=== PATIENT | female | born 1980 | race Caucasian/White ===

== ENCOUNTER 2017-05-16 15:50 | Emergency (ER) | payer OTHER, SELFPAY ==
--- NOTE | 2017-05-16 17:34 | ER ---
Nurse's Notes [facility] Name: Adria Medel Age: 36 yrs Sex: Female : 1980 Arrival Date: 05/16/2017 Time: 15:55 Bed DIS1 Private MD: Diagnosis: Acute sinusitis Presentation: 05/16 16:12 Presenting complaint: Patient states: " I have been feeling like I've had a fever for ph about 2 days. I feel really congested and when I blow my nose it's yellow and green. My throat started hurting today and I'm loosing my voice.". Transition of care: patient was not received from another setting of care. Onset of symptoms was May 16, 2017. Care prior to arrival: Medication(s) given: Tylenol, 650 mg, \\T\\ 1230. 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 - Social history:: Smoking status: Patient/guardian denies using tobacco. Screenin:01 Abuse screen: Denies threats or abuse. Denies injuries from another. Nutritional ph screening: No deficits noted. Tuberculosis screening: No symptoms or risk factors identified. Fall Risk None identified. Assessment: 16:57 General: Appears in no apparent distress. comfortable, Behavior is calm, cooperative, ph appropriate for age, Reports fever for. Pain: Complains of pain in throat. Neuro: Level of Consciousness is awake, alert, obeys commands, Oriented to person, place, time, situation. Cardiovascular: Denies chest pain, shortness of breath, Capillary refill < 3 seconds in bilateral fingers Patient's skin is warm and dry. Respiratory: Airway is patent Respiratory effort is even, unlabored, Respiratory pattern is regular, symmetrical, Breath sounds are clear bilaterally. Denies shortness of breath. GI: No signs and/or symptoms were reported involving the gastrointestinal system. EENT: Throat is reddened bilaterally Reports nasal congestion nasal discharge that is green that is yellow pain when swallowing. Derm: Skin is intact, is healthy with good turgor, Skin is pink, warm \\T\\ dry. Musculoskeletal: Circulation, motion, and sensation intact. Range of motion: intact in all extremities. 17:47 Reassessment: Patient appears in no apparent distress at this time. Patient and/or ph family updated on plan of care and expected duration. Pain level reassessed. Patient is alert, oriented x 3, equal unlabored respirations, skin warm/dry/pink. Discharged home. Vital Signs: 16:14 BP 123 / 84; Pulse 65; Resp 18; Temp 98.1(O); Pulse Ox 98% on R/A; Weight 78.47 kg; ph Height 5 ft. 6 in. (167.64 cm); 17:47 BP 118 / 83; Pulse 64; Resp 18; Temp 97.2; Pulse Ox 98% on R/A; ph 16:14 Body Mass Index 27.92 (78.47 kg, 167.64 cm) ph ED Course: 15:55 Patient arrived in ED. as 16:14 Triage completed. ph 16:15 Arm band placed on. ph 16:32 Jennifer Pierce FNP-C is [facility]. kb 16:33 Hansel Reyes MD is Attending Physician. kb 16:57 Lesly Casey, RN is Primary Nurse. ph 17:01 Patient has correct armband on for positive identification. Call light in reach. ph 17:01 No provider procedures requiring assistance completed. Patient did not have IV access ph during this emergency room visit. Administered Medications: No medications were administered Outcome: 17:34 Discharge ordered by MD. kb 17:47 Discharged to home ambulatory, with family. ph 17:47 Condition: good 17:47 Discharge instructions given to patient, Instructed on discharge instructions, follow up and referral plans. Demonstrated understanding of instructions, follow-up care. 17:48 Patient left the ED. ph Signatures: Jennifer Pierce FNP-C FNP-Gosia Do as Lesly Casey, RN RN ph
--- NOTE | 2017-05-16 17:34 | EDPHYS ---
Physician Documentation [facility] Name: Adria Medel Age: 36 yrs Sex: Female : 1980 Arrival Date: 05/16/2017 Time: 15:55 Bed DIS1 Private MD: ED Physician Hansel Reyes HPI: 05/16 16:48 This 36 yrs old Female presents to ER via Ambulatory with complaints of kb Fever, Congestion, Sore Throat. 16:48 The patient presents with sore throat. The patient describes throat pain as constant. kb Onset: The symptoms/episode began/occurred yesterday. Severity of symptoms: At their worst the symptoms were mild, moderate, in the emergency department the symptoms are unchanged. Modifying factors: The symptoms are alleviated by nothing, the symptoms are aggravated by swallowing, Patient's oral intake status: good. Associated signs and symptoms: Pertinent positives: earache, rhinorrhea, Sore throat congestion, hoarseness. The patient has not experienced similar symptoms in the past. The patient has not recently seen a physician. 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 - Social history:: Smoking status: Patient/guardian denies using tobacco. ROS: 16:46 Constitutional: Negative for fever, chills, and weight loss, Neck: Negative for injury, kb pain, and swelling, Cardiovascular: Negative for chest pain, palpitations, and edema, Respiratory: Negative for shortness of breath, cough, wheezing, and pleuritic chest pain, Abdomen/GI: Negative for abdominal pain, nausea, vomiting, diarrhea, and constipation, Back: Negative for injury and pain, : Negative for injury, bleeding, discharge, and swelling, MS/Extremity: Negative for injury and deformity, Skin: Negative for injury, rash, and discoloration, Neuro: Negative for headache, weakness, numbness, tingling, and seizure. 16:46 ENT: Positive for ear pain, hoarseness, rhinorrhea, sinus congestion, sore throat. Exam: 16:46 Constitutional: This is a well developed, well nourished patient who is awake, alert, kb and in no acute distress. Head/Face: Normocephalic, atraumatic. Neck: Trachea midline, no thyromegaly or masses palpated, and no cervical lymphadenopathy. Supple, full range of motion without nuchal rigidity, or vertebral point tenderness. No Meningismus. Chest/axilla: Normal chest wall appearance and motion. Nontender with no deformity. No lesions are appreciated. Cardiovascular: Regular rate and rhythm with a normal S1 and S2. No gallops, murmurs, or rubs. Normal PMI, no JVD. No pulse deficits. Respiratory: Lungs have equal breath sounds bilaterally, clear to auscultation and percussion. No rales, rhonchi or wheezes noted. No increased work of breathing, no retractions or nasal flaring. Abdomen/GI: Soft, non-tender, with normal bowel sounds. No distension or tympany. No guarding or rebound. No evidence of tenderness throughout. Skin: Warm, dry with normal turgor. Normal color with no rashes, no lesions, and no evidence of cellulitis. MS/ Extremity: Pulses equal, no cyanosis. Neurovascular intact. Full, normal range of motion. Neuro: Awake and alert, GCS 15, oriented to person, place, time, and situation. Cranial nerves II-XII grossly intact. Motor strength 5/5 in all extremities. Sensory grossly intact. Cerebellar exam normal. Normal gait. 16:46 ENT: External ear(s): are unremarkable, Ear canal(s): are normal, TM's: are normal, Nose: is normal, Mouth: is normal, Posterior pharynx: Airway: normal, no evidence of obstruction, Tonsils: with erythema, Uvula: normal, midline, swelling, is not appreciated, erythema, that is mild, exudate, is not appreciated. Vital Signs: 16:14 BP 123 / 84; Pulse 65; Resp 18; Temp 98.1(O); Pulse Ox 98% on R/A; Weight 78.47 kg; ph Height 5 ft. 6 in. (167.64 cm); 17:47 BP 118 / 83; Pulse 64; Resp 18; Temp 97.2; Pulse Ox 98% on R/A; ph 16:14 Body Mass Index 27.92 (78.47 kg, 167.64 cm) ph MDM: 16:33 Patient medically screened. kb 16:46 Data reviewed: vital signs, nurses notes. Data interpreted: Pulse oximetry: on room air kb is 98 %. Interpretation: normal. 17:33 Counseling: I had a detailed discussion with the patient and/or guardian regarding: the kb historical points, exam findings, and any diagnostic results supporting the discharge/admit diagnosis, lab results, the need for outpatient follow up, a family practitioner, to return to the emergency department if symptoms worsen or persist or if there are any questions or concerns that arise at home. 05/16 16:41 Order name: Strep kb 05/16 17:25 Order name: Group A Streptococcus Rapid Sc; Complete Time: 17:28 EDMS Administered Medications: No medications were administered Disposition: 05/16/17 17:34 Discharged to Home. Impression: Acute sinusitis. - Condition is Stable. - Discharge Instructions: Sinusitis, [id number]. - Medication Reconciliation Form, Thank You Letter, Antibiotic Education, Prescription Opioid Use form. - Follow up: Emergency Department; When: As needed; Reason: Worsening of condition. Follow up: Private Physician; When: 2 - 3 days; Reason: Recheck today's complaints, Continuance of care, Re-evaluation by your physician. - Notes: Addendum: 05/20/2017 07:24 Co-signature as Attending Physician, Hansel Reyes MD. g s Signatures: Dispatcher [employer] EDJennifer Araujo, SUZAN GUSTAFSON-Lesly Campos RN RN Hansel Loja MD MD
== END 2017-05-16 17:48 | disposition home or self-care (01) ==
LOC: ER 15:50
DX: J01.90 Acute sinusitis, unspecified (principal); Z88.1 Allergy status to other antibiotic agents; Z88.2 Allergy status to sulfonamides
CPT/HCPCS: 87070; 87081; 99281

== ENCOUNTER 2017-12-11 14:39 | Emergency (ER) | payer BC, OTHER ==
[2017-12-11 16:16] LABS: Urine Specific Gravity >1.030 (1.005-1.030)
[2017-12-11 16:16] LABS: Urine Blood NEGATIVE (NEG); Urine Glucose NEGATIVE (NEG); Urine Protein NEGATIVE (NEG); Urine Specific Gravity >1.030 (1.005-1.030); Urine pH 5.5 (5.0-7.0)
[2017-12-11 16:18] LABS: Absolute Lymphocytes (CBC) 1.8 K/uL (0.7-4.9); Absolute Monocytes 0.4 K/uL (0.1-1.3); Absolute Neutrophil 3.5 K/uL (1.8-8.0); Basophils % 0.7 % (0-1.3); Eosinophils % 1.6 % (0-4.4); Hematocrit 37.9 % (36.0-45.0); Lymphocytes % 30.5 % (15.3-44.8); MCV 91.5 fL (80-100); MPV 10.2 fL (7.6-11.3); RBC Red Blood Cell Count 4.14 M/uL (3.86-4.86)
[2017-12-11 16:45] LABS: BUN Blood Urea Nitrogen 7 mg/dL (7-18); Bicarbonate 24 mmol/L (21-32); Glucose Level 84 mg/dL (74-106); Potassium 3.8 mmol/L (3.5-5.1); Sodium Level 142 mmol/L (136-145)
[2017-12-11 16:47] LABS: HCG, Quantitative < 1 mIU/mL (1-3)
--- NOTE | 2017-12-11 17:04 | ER ---
Nurse's Notes [facility] Name: Adria Medel Age: 37 yrs Sex: Female : 1980 Arrival Date: 12/11/2017 Time: 14:41 Bed 28 Private MD: Diagnosis: Lower abdominal pain, unspecified-Resolved Presentation: 12/11 14:45 Presenting complaint: Patient states: "I was cramping really bad, I could barely stand aj1 up, it was worse than menstrual cramps so I took a test and it was positive" Denies vaginal bleeding. States that she is concerned that she might need a RhoGam shot. Transition of care: patient was not received from another setting of care. Onset of symptoms was December 11, 2017. Risk Assessment: Do you want to hurt yourself or someone else? Patient reports no desire to harm self or others. Initial Sepsis Screen: Does the patient meet any 2 criteria? No. Patient's initial sepsis screen is negative. Does the patient have a suspected source of infection? No. Patient's initial sepsis screen is negative. Care prior to arrival: None. 14:45 Method Of Arrival: Ambulatory aj1 14:45 Acuity: ALFREDO 4 aj1 Triage Assessment: 14:47 General: Appears in no apparent distress. comfortable, Behavior is calm, cooperative, aj1 appropriate for age. Pain: Denies pain. Neuro: Level of Consciousness is awake, alert, obeys commands. Cardiovascular: Patient's skin is warm and dry. Respiratory: Airway is patent Respiratory effort is even, unlabored, Respiratory pattern is regular, symmetrical. GI: Reports cramping. 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 - Social history:: Smoking status: Patient/guardian denies using tobacco. - Ebola Screening: : Patient denies travel to an Ebola-affected area in the 21 days before illness onset. Screenin:57 Abuse screen: Denies threats or abuse. Denies injuries from another. Nutritional rv screening: No deficits noted. Tuberculosis screening: No symptoms or risk factors identified. Fall Risk None identified. Assessment: 14:56 General: Appears in no apparent distress. comfortable, Behavior is cooperative, rv anxious. Pain: Complains of pain in abdomen Pain currently is 0 out of 10 on a pain scale. Neuro: Level of Consciousness is awake, alert, obeys commands, Oriented to person, place, time, situation. Cardiovascular: Capillary refill < 3 seconds. Respiratory: Airway is patent. GI: Bowel sounds present X 4 quads. Abd is soft and non tender X 4 quads. : No signs and/or symptoms were reported regarding the genitourinary system. EENT: No signs and/or symptoms were reported regarding the EENT system. Derm: Skin is intact. 16:44 Reassessment: Patient appears in no apparent distress at this time. Patient and/or rv family updated on plan of care and expected duration. Pain level reassessed. Patient is alert, oriented x 3, equal unlabored respirations, skin warm/dry/pink. Vital Signs: 14:47 BP 105 / 77; Pulse 73; Resp 16; Temp 97.0; Pulse Ox 98% on R/A; Weight 77.11 kg (R); aj1 Height 5 ft. 6 in. (167.64 cm) (R); Pain 0/10; 15:09 BP 103 / 72; Pulse 64; Pulse Ox 98% on R/A; rv 16:44 BP 122 / 95; Pulse 101; Pulse Ox 99% on R/A; rv 14:47 Body Mass Index 27.44 (77.11 kg, 167.64 cm) aj1 ED Course: 14:41 Patient arrived in ED. tw3 14:46 Triage completed. aj1 14:47 Arm band placed on Patient placed in an exam room. aj1 14:57 Patient has correct armband on for positive identification. Bed in low position. Call rv light in reach. Side rails up X 1. Pulse ox on. NIBP on. 15:10 Urine collected: clean catch specimen, clear. rv 15:15 Kaden Cavazos PA is PHCP. cp 15:15 Luis Antonio Borges MD is Attending Physician. cp 15:39 Inserted saline lock: 22 gauge in right forearm, using aseptic technique. Blood rv collected. 16:45 Awaiting lab results. rv 17:09 No provider procedures requiring assistance completed. rv 17:12 IV discontinued, PATIENT TOOK IT OF HERSELF. rv Administered Medications: No medications were administered Outcome: 17:04 Discharge ordered by . cp 17:13 Discharged to home ambulatory. rv 17:13 Condition: good 17:13 Discharge instructions given to patient, Instructed on discharge instructions, follow up and referral plans. Demonstrated understanding of instructions, follow-up care. 17:14 Patient left the ED. rv Signatures: Margarita Cohn, RN RN aj1 Kaden Cavazos PA PA Christa Madrigal tw3 Beto Schultz RN RN rv
--- NOTE | 2017-12-11 17:04 | EDPHYS ---
Physician Documentation [facility] Name: Adria Medel Age: 37 yrs Sex: Female : 1980 Arrival Date: 12/11/2017 Time: 14:41 Bed 28 Private MD: ED Physician Luis Antonio Borges HPI: 12/11 15:24 This 37 yrs old Female presents to ER via Ambulatory with complaints of cp Abdominal Cramping. 15:25 The patient presents with abdominal pain in the lower abdomen. 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 Associated signs and symptoms: Pertinent negatives: blood in stools, constipation, diarrhea, dysuria, fever, vaginal discharge, vomiting. The symptoms are described as crampy. Severity of pain: in the emergency department the pain has resolved. 15:25 Patient reports positive test at home today. 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 - Social history:: Smoking status: Patient/guardian denies using tobacco. - Ebola Screening: : Patient denies travel to an Ebola-affected area in the 21 days before illness onset. ROS: 15:30 Constitutional: Negative for body aches, chills, fever, poor PO intake. cp 15:30 Eyes: Negative for injury, pain, redness, and discharge. cp 15:30 ENT: Negative for drainage from ear(s), ear pain, sore throat, difficulty swallowing, difficulty handling secretions. 15:30 Cardiovascular: Negative for chest pain, edema, palpitations. 15:30 Respiratory: Negative for cough, shortness of breath, wheezing. 15:30 Abdomen/GI: Positive for abdominal pain, abdominal cramps, now resolved, Negative for constipation, anorexia, black/tarry stool, rectal bleeding. 15:30 : Negative for urinary symptoms, vaginal bleeding, vaginal discharge. 15:30 Skin: Negative for cellulitis, rash. 15:30 Neuro: Negative for altered mental status, headache, syncope, weakness. 15:30 All other systems are negative. Exam: 15:35 Constitutional: The patient appears in no acute distress, alert, awake, comfortable, cp non-toxic, well developed, well nourished. 15:35 Head/Face: Normocephalic, atraumatic. cp 15:35 Eyes: Periorbital structures: appear normal, Conjunctiva: normal, no exudate, no injection, Sclera: no appreciated abnormality, Lids and lashes: appear normal, bilaterally. 15:35 ENT: External ear(s): are unremarkable, Nose: is normal, Mouth: Lips: moist, Oral mucosa: pink and intact, moist, Posterior pharynx: is normal, airway is patent, no erythema, no exudate. 15:35 Neck: ROM/movement: is normal, is supple, without pain, no range of motions limitations, no nuchal rigidity. 15:35 Chest/axilla: Inspection: normal, Palpation: is normal, no crepitus, no tenderness. 15:35 Cardiovascular: Rate: normal, Rhythm: regular. 15:35 Respiratory: the patient does not display signs of respiratory distress, Respirations: normal, no use of accessory muscles, no retractions, no splinting, no tachypnea, labored breathing, is not present, Breath sounds: are clear throughout, no decreased breath sounds, no stridor, no wheezing. 15:35 Abdomen/GI: Inspection: abdomen appears normal, Bowel sounds: active, all quadrants, Palpation: abdomen is soft and non-tender, in all quadrants, rebound tenderness, is not appreciated, voluntary guarding, is not appreciated, involuntary guarding, is not appreciated. 15:35 Skin: cellulitis, is not appreciated, no rash present. Vital Signs: 14:47 BP 105 / 77; Pulse 73; Resp 16; Temp 97.0; Pulse Ox 98% on R/A; Weight 77.11 kg (R); aj1 Height 5 ft. 6 in. (167.64 cm) (R); Pain 0/10; 15:09 BP 103 / 72; Pulse 64; Pulse Ox 98% on R/A; rv 16:44 BP 122 / 95; Pulse 101; Pulse Ox 99% on R/A; rv 14:47 Body Mass Index 27.44 (77.11 kg, 167.64 cm) aj1 MDM: 15:24 Patient medically screened. cp 15:30 Differential diagnosis: Ectopic , Ovarian Torsion, Pelvic Inflammatory cp Disease, Pyelonephritis, Ureterolithiasis, urinary tract infection. 17:02 Data reviewed: vital signs, nurses notes, lab test result(s), and as a result, I will cp discharge patient. 17:02 Counseling: I had a detailed discussion with the patient and/or guardian regarding: the cp historical points, exam findings, and any diagnostic results supporting the discharge/admit diagnosis, lab results, to return to the emergency department if symptoms worsen or persist or if there are any questions or concerns that arise at home. ED course: VSS. Patient w/o abdominal pain while in ED. Serum beta-hcg negative. Will discharge to home for continued monitoring. 12/11 15:14 Order name: Urine Dipstick--Ancillary (enter results); Complete Time: 16:49 ms 12/11 15:18 Order name: Urine --Ancillary (enter results); Complete Time: 16:49 ms 12/11 15:24 Order name: Quantitative Hcg; Complete Time: 16:49 cp 12/11 15:24 Order name: Abo/rh Typing; Complete Time: 16:49 cp 12/11 15:24 Order name: Basic Metabolic Panel; Complete Time: 16:49 cp 12/11 15:24 Order name: CBC with Diff; Complete Time: 16:49 cp 12/11 15:16 Order name: Urine Test (obtain specimen); Complete Time: 15:17 cp 12/11 15:24 Order name: IV Saline Lock; Complete Time: 15:39 cp 12/11 15:24 Order name: Labs collected and sent; Complete Time: 15:39 cp 12/11 15:24 Order name: NPO; Complete Time: 15:39 cp Administered Medications: No medications were administered Disposition: 17:26 Co-signature as Attending Physician, Luis Antonio Borges MD I agree with the assessment and kdr plan of care. Disposition: 12/11/17 17:04 Discharged to Home. Impression: Lower abdominal pain, unspecified - Resolved . - Condition is Stable. - Discharge Instructions: Abdominal Pain, Adult. - Medication Reconciliation Form, Thank You Letter, Antibiotic Education, Prescription Opioid Use form. - Follow up: Private Physician; When: 2 - 3 days; Reason: Recheck today's complaints. - Problem is new. - Symptoms are resolved. Signatures: Dispatcher [employer] EDMargariat Casas RN RN aj1 Luis Antonio Borges MD MD kdr Kaden Cavazos PA PA Beto Bush RN RN rv Corrections: (The following items were deleted from the chart) 17:14 17:04 12/11/2017 17:04 Discharged to Home. Impression: Lower abdominal pain, rv unspecified - Resolved . Condition is Stable. Forms are Medication Reconciliation Form, Thank You Letter, Antibiotic Education, Prescription Opioid Use. Follow up: Private Physician; When: 2 - 3 days; Reason: Recheck today's complaints. Problem is new. Symptoms are resolved. cp
== END 2017-12-11 17:14 | disposition home or self-care (01) ==
LOC: ER 14:39
DX: R10.30 Lower abdominal pain, unspecified (principal); Z88.1 Allergy status to other antibiotic agents; Z88.2 Allergy status to sulfonamides
CPT/HCPCS: 36415; 80048; 81003; 81025; 84702; 85025; 86900; 86901; 99283

== ENCOUNTER 2024-06-01 01:49 | Emergency (ER) | payer BC ==
--- OUTSIDE RECORDS SUMMARY | 2024-06-01 01:53 | XMS REPORT | Continuity of Care Document ---
Author Name Unknown Address [address] [facility] [address] [place] [address] [facility] Address [address] [facility] [address] [place] [address] Care Team Providers Care Plant Manager Name Role Phone Shayla Hercules Primary Care Physician [phone] Kobi Sinclair Attending Clinician Unavaillouise e EbBradley Jean Baptiste Attending Clinician [phone] Pob, [facility] Lab Main Attending Clinician UnavailBRADLEY Yi Attending Clinician Unavailable Unknown, Attending Attending Clinician Unavailab le RADIOLOGY Attending Clinician Unavailable Radiology Attending Clinician Unavailable JAYNA SCHMITZ Attending Clinician Unavailable BERTO TERRY Attending Clinician Unavailable BERTO TERRY Attending Clinician Unavailable Kobi Sinclair Admitting Clinician UnavailRUSSELL Sosa JR Admitting Clinician Unavailab BERTO Mcgrath Admitting Clinician Unavailable Payers Payer Name Policy Type Policy Number Effective Date Expirati on Date Source [employer] [place] - OUT OF [place] [id number] 2018 00:00:00 Problems Condition Name Condition Details Condition Category Status Onset Date Resolution Date Last Treatment Date Treating Clinician Comments Source Abdominal pain, right upper quadrant Abdominal pain, right upper quadrant Disease Active 2017-02 00:00: 00 Overview: Formattin g of this note might be different from the original. Added automatic ally from request for surgery [id number] [facility] Constipati on, unspecifie d constipati on type Constipati on, unspecifie d constipati on type Disease Active 2017-02 00:00: 00 Overview: Formattin g of this note might be different from the original. Added automatic ally from request for surgery [id number] [facility] Cellulitis Cellulitis Disease Active 2015-02 00:00: 00 [facility] Allergies, Adverse Reactions, Alerts Allergy Name Allergy Type Status Severity Reaction(s) Onset Date Inactive Date Treating Clinician Comments Source Sulfa (Sulfona mide Antibiot ics) DA Active [place] HIVES, ABDOMINAL CRAMPING 4 00:00: 00 [facility] Sulfa (Sulfona mide Antibiot ics) DA Active [place] HIVES, ABDOMINAL CRAMPING 2020-02 00:00: 00 [facility] SULFA (SULFONA MIDE ANTIBIOT ICS) Drug Class Active Hives 2017-02 00:00: 00 [facility] Amoxicil karen-Pot Clavulan ate Propensi ty to adverse reaction s Active Unknown - See comments 2017-02 00:00: 00 Pt doesn't remember what side affects caused [facility] ycin-Sul fisoxazo le Propensi ty to adverse reaction s Active Unknown - See comments 2017-02 00:00: 00 Pt doesn't remember the side affects caused [facility] AMOXICIL KAREN-POT CLAVULAN ATE DRUG Active Unknown-Cmnt 2017-02 00:00: 00 [facility] FIS[facility] Active Unknown-Cmnt 2017-02 00:00: 00 [facility] Amoxicil karen-Pot Clavulan ate Propensi ty to adverse reaction s Active Hives 08-20 00:00: 00 [facility] Erythrom ycin-Sul fisoxazo le Propensi ty to adverse reaction s Active Hives 08-20 00:00: 00 [facility] Sulfa (Sulfona mide Antibiot ics) Propensi ty to adverse reaction s Active Hives 08-20 00:00: 00 [facility] AMOXICIL KAREN-POT CLAVULAN ATE DRUG Active Hives 08-20 00:00: 00 [facility] ERYTHROM YCIN-SUL FISOXAZO LE DRUG Active Hives 08-20 00:00: 00 [facility] SULFA (SULFONA MIDE ANTIBIOT ICS) Drug Class Active Hives 08-20 00:00: 00 [facility] Social History Social Habit Start Date Stop Date Quantity Comments Source [facility] Tobacco use and exposure 2023-06-15 00:00:00 2023-06-15 00:00:[address] [facility] Alcohol intake 2023-06-15 00:00:00 2023-06-15 00:00:00 0 /d [facility] History of Social function 2023-06-15 00:00:00 2023-06-15 00:00:[address] [facility] Tobacco Comment 2023-06-15 00:00:00 2023-06-15 00:00:[address] [facility] Alcohol Comment 2016-02-22 00:00:00 2016-02-22 00:00:00 2-[address] [facility] Sex Assigned At 1980 00:00:00 1980 00:00:[address] [facility] Smoking Status Start Date Stop Date Source Never smoked tobacco [facility] Medications Ordered Medication Name Filled Medication Name Start Date Stop Date Current Medication? Ordering Clinician Indication Dosage Frequency Signature (SIG) Comments Components Source ondansetron (ZOFRAN-ODT ) disintegrat ing tablet 4 mg 06-14 18:00: 00 06-14 17:16 :00 No [id number] 4mg 4 mg, Oral, ONCE, 1 dose, On Wed06/15/23 at 1300, Routine [facility] vancomycin 125 mg capsule 06-14 00:00: 00 06-25 04:59 :00 No [id number] 125mg Take 1 capsule by mouth 4 (four) times daily for 10 days. [facility] ondansetron 4 mg disintegrat ing tablet 06-14 00:00: 00 06-20 04:59 :00 No [id number] 4mg Take 1 tablet by mouth every 8 (eight) hours as needed for Nausea and Vomiting (N/V) for up to 5 days. [facility] calcium carbonate (TUMS ORAL) 07-09 16:55: 19 Yes Take by mouth. [facility] omeprazole 20 mg capsule 2017-02 00:00: 00 Yes 20mg Take 1 capsule by mouth daily. [facility] carBAMazepi ne (TEGRETOL) 200 mg tablet 02-23 13:10: 35 Yes 200mg Take 200 mg by mouth 2 (two) times daily. [facility] metroNIDAZO LE (FLAGYL) 500 mg tablet 02-23 00:00: 00 Yes 500mg Take 1 tablet by mouth every 8 (eight) hours. [facility] docusate 100 mg capsule 02-23 00:00: 00 Yes 100mg Take 1 capsule by mouth daily. [facility] ibuprofen 800 mg tablet 02-23 00:00: 00 Yes 800mg Take 1 tablet by mouth every 6 (six) hours as needed for Pain (scale 1-3). [facility] ciprofloxac in HCl 500 mg tablet 02-23 00:00: 00 Yes 500mg Take 1 tablet by mouth every 12 (twelve) hours. [facility] Immunizations Ordered Immunization Name Filled Immunization Name Date Status Comments Source Rabies Immune Globulin Unknown Completed [facility] RABIES VACCINE Unknown Completed [facility] Rabies Immune Globulin Unknown Completed [facility] RABIES VACCINE Unknown Completed [facility] Rabies Immune Globulin Unknown Completed [facility] RABIES VACCINE Unknown Completed [facility] Rabies Immune Globulin Unknown Completed [facility] RABIES VACCINE Unknown [facility] Vital Signs Vital Name Observation Time Observation Value Comments S ource Systolic blood pressure 2023-06-15 17:13:00 92 mm[Hg] [facility] Diastolic blood pressure 2023-06-15 17:13:00 46 mm[Hg] [facility] Heart rate 2023-06-15 17:13:00 81 /min [facility] Body temperature 2023-06-15 17:13:[address] [facility] Respiratory rate 2023-06-15 17:13:00 17 /min [facility] Body weight 2023-06-15 17:13:00 58.968 kg [facility] BMI 2023-06-15 17:13:00 19.20 kg/m2 [facility] Oxygen saturation in Arterial blood by Pulse oximetry 2023-06-15 17:13:00 98 /min [facility] Procedures Procedure Date / Time Performed Performing Clinician Source BI SCREENING TOMOSYNTHESIS BILATERAL 2023-01-08 20:54:36 Requisition, Paper [facility] NOTICE OF PRIVACY PRACTICES 2023-01-08 20:16:30 Doctor Unassigned, [place] [facility] CONSENT/REFUSAL FOR DIAGNOSIS AND TREATMENT 2023-01-08 20:16:06 Doctor Unassigned, [place] [facility] ASSIGNMENT OF BENEFITS 2023-01-08 20:15:50 Docto r Unassigned, [place] [facility] [id number] 2021-06-01 00:00:00 [facility] Encounters Start Date/Time End Date/Time Encounter Type Admission Type Attending Clinicians Care Facility Care Department Encounter ID Source 2021-05-23 00:10:00 Inpatient EL MaximKobi villatoro [facility] IVF [id number] [facility] 2021-01-22 00:11:00 Inpatient EL Maximos, Kobi [facility] IVF [id number] [facility] 2020-12-22 02:22:05 Emergency [facility] [id number] [facility] 2023-06-19 00:00:00 2023-06-19 00:00:00 Telephone [facility] [id number] [id number] [facility] 2023-06-16 08:45:00 2023-06-16 09:00:00 Food Crops Farm Hand Visit Pepper, [facility] Lab Main Bradley Oconnell [facility] PROFESSIO NAL BUILD[facility] 1..840.114 350.1.13.10 [id number] [id number] [facility] 2023-06-16 08:45:00 2023-06-16 08:45:00 Outpatient R BRADLEY OCONNELL [facility] [id number] [facility] 2023-06-15 12:00:00 2023-06-15 12:39:15 Outpatient R BRADLEY OCONNELL [facility] [id number] [facility] 2023-06-15 12:00:00 2023-06-15 12:20:00 Urgent Care Bradley Oconnell Unknown, Attending [facility] [id number] [id number] [id number] [id number] [facility] 2023-01-08 14:19:23 2023-01-08 23:59:00 Outpatient R RADIOLOGY [facility] [id number] [facility] 2023-01-08 14:00:00 2023-01-08 23:59:00 Hospital Encounter Radiology [facility] [id number] [id number] [id number] [id number] [facility] 2021-06-01 11:30:00 2021-06-05 15:31:00 Inpatient EM Kobi Sinclair [facility] OBPP [id number] [facility] 2021-05-07 10:25:00 2021-05-22 00:00:00 Outpatient Kobi Tejeda [facility] IVF [id number] [facility] 2021-01-17 10:36:00 2021-01-21 00:00:00 Outpatient Kobi Tejeda [facility] IVF [id number] [facility] 2020-03-21 11:00:00 2020-03-21 11:00:00 Outpatient R [facility] [id number] [facility] 2020-03-16 16:20:00 2020-03-16 16:20:00 Outpatient JAYNA NARAYAN [facility] [id number] [facility] 2018-03-17 09:46:00 2018-03-17 14:05:00 Outpatient BERTO TANNER GABRIEL [facility] VLS [id number] [facility] Results Test Description Test Time Test Comments Results Result Co mments Source RAPID PLASMA [id number] 10:34:00* Test Item Value Reference Range Interpretation Comme nts RAPID PLASMA REAGIN (test co de = RPR) NONREACTIVE NONREACTIVE AG HEPATITIS B [id number] 10:34:00* Test Item Value Reference Range Interpretation Comme [facility] AG HEPATITIS B SURFACE (test code = HBSAG) NON REACTIVE INDEX NonReactive AB HIV 1 10:34:00* Test Item Value Reference Range Interpretation Comme nts AB HIV 1 2 (test code = LHD61HE) Nonreactive Nonreactive COMPREHENSIVE METABOLIC [id number] 08:13:00* Test Item Value Reference Range Interpretation Comme nts SODIUM (test code = NA) 138 mEq/L 134-147 N POTASSIUM (test code = K) 3.7 mEq/L 3.4-5.0 N CHLORIDE (test code = CL) 108 mEq/L 100-108 N CARBON DIOXIDE (test code = CO2) 20 mEq/l 21-33 L ANION GAP (test code = GAP) 14 0-20 N GLUCOSE (test code = GLU) 105 mg/dL 70-110 N BLOOD UREA NITROGEN (test code = BUN) < 5 mg/dL 7-18 L GLOMERULAR FILTRATION RATE (test code = GFR) 137.4 105-110 H Units of measure = ml/min/1.73 m2 CREATININE (test code = CREAT) 0.5 mg/dL 0.6-1.3 L TOTAL PROTEIN (test code = PROT) 4.9 g/dL 6.4-8.2 L ALBUMIN (test code = ALB) 2.30 g/dL 3.4-5.0 L CALCIUM (test code = CA) 8.5 mg/dL 8.0-10.5 N BILIRUBIN TOTAL (test code = BILT) 0.30 mg/dL 0.0-1.0 N SGOT/AST (test code = AST) 21 IUnit/L 15-37 N SGPT/ALT (test code = ALT) 14 IUnit/L 30-65 L ALKALINE PHOSPHATASE TOTAL (test code = ALKP) 105 IUnit/L 20-125 N CBC W/AUTO [id number] 07:19:00* Test Item Value Reference Range Interpretation Comme nts WHITE BLOOD CELL (test code = WBC) 13.0 x10 3/uL 4.5-11.0 H RED BLOOD CELL (test code = RBC) 3.37 x10 6/uL 3.54-5.02 L HEMOGLOBIN (test code = HGB) 10.1 g/dL 11.0-15.0 L HEMATOCRIT (test code = HCT) 31.5 % 33.0-45.0 L MEAN CELL VOLUME (test code = MCV) 93.5 fL 81.0-99.0 N MEAN CELL HGB (test code = MCH) 30.0 pg 27.0-33.0 N MEAN CELL HGB CONCETRATION (test code = MCHC) 32.1 g/dL 33.0-37.0 L RED CELL DISTRIBUTION WIDTH CV (test code = RDW) 13.3 % 11.5-14.5 N RED CELL DISTRIBUTION WIDTH SD (test code = RDW-SD) 45.6 fL 37.0-54.0 N PLATELET COUNT (test code = PLT) 164 x10 3/uL 150-400 N IMMATURE PLATELET FRACTION (test code = IPF) 11.6 % 0.9-11.2 H MEAN PLATELET VOLUME (test code = MPV) 13.1 fL 7.0-9.0 H NEUTROPHIL % (test code = NT%) 77.8 % 56.0-77.0 H IMMATURE GRANULOCYTE % (test code = IG%) 0.5 % 0.0-2.0 N LYMPHOCYTE % (test code = LY%) 14.6 % 14.0-32.0 N MONOCYTE % (test code = MO%) 6.2 % 4.8-9.0 N EOSINOPHIL % (test code = EO%) 0.7 % 0.3-3.7 N BASOPHIL % (test code = BA%) 0.2 % 0.0-2.0 N NUCLEATED RBC % (test code = NRBC%) 0.0 % 0-0 N NEUTROPHIL # (test code = NT#) 10.08 x10 3/uL 2.0-7.6 H IMMATURE GRANULOCYTE # (test code = IG#) 0.07 x10 3/uL 0.00-0.03 H LYMPHOCYTE # (test code = LY#) 1.89 x10 3/uL 1.0-3.8 N MONOCYTE # (test code = MO#) 0.81 x10 3/uL 0.1-0.8 H EOSINOPHIL # (test code = EO#) 0.09 x10 3/uL 0.0-0.2 N BASOPHIL # (test code = BA#) 0.03 x10 3/uL 0.0-0.2 N NUCLEATED RBC # (test code = NRBC#) 0.00 x10 3/uL 0.0-0.1 N MANUAL DIFF REQUIRED (test code = MDIFF) NO CORD ARTERIAL BLOOD [id number] 13:22:00* Test Item Value Reference Range Interpretation Comme nts CORD BLOOD PH (test code = PH/C) 7.28 7.18-7.38 N CORD BLOOD PCO2 (test code = PCO2/C) 55 mmHg 32-66 N CORD BLOOD PO2 (test code = PO2/C) 18 mmHg 6-30 N CORD BLOOD HCO3 (test code = HCO3/C) 26 mmol/L 17-27 N BASE EXCESS CORD (test code = RADHA/C) -0.9 mmol/L -8.0-0.0 N O2 SATURATION (test code = O2S/C) 21 % 72-77 L CORD VENOUS BLOOD [id number] 13:22:00* Test Item Value Reference Range Interpretation Comme nts CORD VENOUS PH (test code = PHCV) 7.32 7.25-7.45 N CORD VENOUS PCO2 (test code = PCO2CV) 48 mmHg 27-49 N CORD VENOUS PO2 (test code = PO2CV) 24 mmHg 17-41 N CORD VENOUS HCO3 (test code = HCO3CV) 24.7 MMOL/L 12-28 N CORD VENOUS BASE EXCESS (marcos t code = BEXCV) -1.4 mmol/L -8.0-0.00 N CORD VENOUS 02 SAT (test cod e = O2SCV) 37 % CBC W/AUTO [id number] 11:38:00* Test Item Value Reference Range Interpretation Comme nts WHITE BLOOD CELL (test code = WBC) 8.6 x10 3/uL 4.5-11.0 N RED BLOOD CELL (test code = RBC) 3.92 x10 6/uL 3.54-5.02 N HEMOGLOBIN (test code = HGB) 12.0 g/dL 11.0-15.0 N HEMATOCRIT (test code = HCT) 35.5 % 33.0-45.0 N MEAN CELL VOLUME (test code = MCV) 90.6 fL 81.0-99.0 N MEAN CELL HGB (test code = MCH) 30.6 pg 27.0-33.0 N MEAN CELL HGB CONCETRATION (test code = MCHC) 33.8 g/dL 33.0-37.0 N RED CELL DISTRIBUTION WIDTH CV (test code = RDW) 13.2 % 11.5-14.5 N RED CELL DISTRIBUTION WIDTH SD (test code = RDW-SD) 43.3 fL 37.0-54.0 N PLATELET COUNT (test code = PLT) 158 x10 3/uL 150-400 N MEAN PLATELET VOLUME (test c ode = MPV) 12.1 fL 7.0-9.0 H NEUTROPHIL % (test code = NT%) 70.7 % 56.0-77.0 N IMMATURE GRANULOCYTE % (test code = IG%) 0.8 % 0.0-2.0 N LYMPHOCYTE % (test code = LY%) 18.7 % 14.0-32.0 N MONOCYTE % (test code = MO%) 7.6 % 4.8-9.0 N EOSINOPHIL % (test code = EO%) 2.0 % 0.3-3.7 N BASOPHIL % (test code = BA%) 0.2 % 0.0-2.0 N NUCLEATED RBC % (test code = NRBC%) 0.0 % 0-0 N NEUTROPHIL # (test code = NT#) 6.08 x10 3/uL 2.0-7.6 N IMMATURE GRANULOCYTE # (test code = IG#) 0.07 x10 3/uL 0.00-0.03 H LYMPHOCYTE # (test code = LY#) 1.61 x10 3/uL 1.0-3.8 N MONOCYTE # (test code = MO#) 0.65 x10 3/uL 0.1-0.8 N EOSINOPHIL # (test code = EO#) 0.17 x10 3/uL 0.0-0.2 N BASOPHIL # (test code = BA#) 0.02 x10 3/uL 0.0-0.2 N NUCLEATED RBC # (test code = NRBC#) 0.00 x10 3/uL 0.0-0.1 N MANUAL DIFF REQUIRED (test c ode = MDIFF) NO AMNISURE (ROM) [id number] 11:04:00* Test Item Value Reference Range Interpretation Comme nts AMNISURE (ROM) TEST (test co de = AMNI) POSITIVE NEGATIVE A Notes Date/Time Note Provider Source 2023-06-19 13:48:01 Reviewed results with patient Negative C.Diff T [facility] 2023-06-16 08:45:00 Patient presented with specimen for drop-off and was identified by and name. Collection information/ total volume were documented accordingly. The following specimens were sent to [facility] laboratories per lab order on 06/16/2023 : 24 hour urine Random urine Stool 1 Swab Other [facility] 2021-07-21 21:20:00 [id number] [address] PATIENT NAME: EMILY GAFFNEY ADMIT DATE: 06/01/21 ACCOUNT NO: [id number] ROOM NO: G.420 AGE: 40 REPORT TYPE: DISCHARGE SUMMARY SEX: F ADMITTING PHYSICIAN:Kobi Sinclair MD ATTENDING PHYSICIAN:Kobi Sinclair MD ADMISSION DATE: 06/01/2021 DISCHARGE DATE: 06/05/2021 DISCHARGE DIAGNOSIS: Status post section. CONDITION: Stable. DIET: Regular. ACTIVITY: Pelvic rest for 6 weeks. MEDICATIONS: Please see reconciliation list. FOLLOWUP: Follow up in one week at the office. HOSPITAL COURSE: The patient was admitted for a and had the procedure without complications and was stabilized on labor and delivery. The patient was transferred to the floor where she progressed in her recovery, ambulated, tolerated diet, and was discharged home with 1-week follow up at the office. Dictated By: Kobi Sinclair MD WT: DS:YUNG/ROBBIE/MARIELLA Conf#: [id number]/DID#: [id number] Authenticated by Kobi Sinclair MD On 07/22/2021 09:53:56 AM at 0953 PATIENT NAME: EMILY GAFFNEY [facility] 2021-06-10 18:16:00 [id number] [address] PATIENT NAME: EMILY GAFFNEY ADMIT DATE: 06/01/21 ACCOUNT NO: [id number] ROOM NO: G.420 AGE: 40 REPORT TYPE: 360 - QUERY RESPONSE DOCUMENT SEX: F ADMITTING PHYSICIAN:Kobi Sinclair MD ATTENDING PHYSICIAN:Kobi Sinclair MD Provider Query QUERY TEXT: Clarification Pathology 360MD Query related questions should be directed to:[facility] Coding Query Helpline Based on your clinical judgment, can you confirm the diagnosis that represents the pathology finding(s) of acute chorionitis]? Reporting of pathology findings require confirmation by the attending physician and/or surgeon. The patient's Clinical Indicators include: Placenta: Third trimester placenta with acute chorionitis, deciduitis; -PATHOLOGY 06/04/2021 Options provided: -- I am in agreement -- I am not in agreement -- Other - I will add my own diagnosis -- Dismiss - Not applicable / Not valid -- Dismiss - Clinically unable to determine / Unknown -- Assign to another provider QUERY RESPONSE: Yes, I am in agreement with the pathology finding(s) noted above. Query created by: Brennon Moy on 06/09/2021 7:49 AM at 1816 PATIENT NAME: EMILY GAFFNEY [facility] 2021-06-05 13:25:00 [facility] ([facility]) OB Postpart Progr Note REPORT#:[id number] REPORT STATUS: Signed DATE:06/05/21 TIME: 1325 PATIENT: EMILY GAFFNEY UNIT #: [id number] ROOM/BED: [place] [address] : 81 AGE: 40 SEX: F ATTEND: Kobi Sinclair MD ADM AUTHOR: Kobi Sinclair MD * ALL edits or amendments must be made on the electronic/computer document * Subjective Subjective Admission EGA: Weeks: 35 Days: 4 Status/Day: post operative (d4) Nursing reports: Nursing reports: Yes normal lochia, Yes pain management effective, Yes tolerating po well, Yes voiding well, Yes voiding without pain, Yes tolerating ambulation, Yes flatus, Yes bowel movement, No complaints Objective Nursing Documentation Review Nursing Data: The data set between the solid lines has been imported from nursing documentation. Any exceptions have been noted below under Provider comments. Feeding preference: Post hemorrhage risk score: Medium Risk for Hemorrhage. Provider comments on imported nursing data: [] ___ General VS: Vital Signs: Date Time Temp Pulse Resp B/P B/P Pulse O2 O2 Flow FiO2 Mean Ox Delivery Rate 06/05 0705 36.4 86 17 125/89 99 06/05 0007 36.8 83 17 123/78 98 06/04 2008 36.8 76 17 120/82 99 PATIENT WEIGHT: Weight (lb): 205 Weight (oz): 7.53 Weight (kg): 93.200 Physical Exam Abdomen: soft, no abnormal tenderness, no guarding Incision site: well approximated edges, no drainage, no inflammation Uterus: involution appropriate, non-tender Fundus: firm, below the umbilicus Lochia: normal Lower extremities: Edema: none Sirisha's sign: negative Calf tenderness: negative Diagnosis, Assessment Plan Diagnosis, Assessment Plan Assessment: nml progress Plan: routine care, discharge today at 1326 RPT #:[id number] END OF REPORT [facility] 2021-06-04 19:17:00 [facility] ([facility]) OB Postpart Progr Note REPORT#:[id number] REPORT STATUS: Signed DATE:06/04/21 TIME: 1916 PATIENT: EMILY GAFFNEY UNIT #: [id number] ROOM/BED: [place] [address] : 81 AGE: 40 SEX: F ATTEND: Kobi Sinclair MD ADM AUTHOR: Kobi Sinclair MD * ALL edits or amendments must be made on the electronic/computer document * Subjective Subjective Admission EGA: Weeks: 35 Days: 4 Status/Day: post operative (d3) Patient reports: Patient reports: Yes no complaints, Yes normal lochia, Yes pain management effective, Yes tolerating po well, Yes voiding well, Yes voiding without pain, Yes tolerating ambulation, Yes flatus Objective Nursing Documentation Review Nursing Data: The data set between the solid lines has been imported from nursing documentation. Any exceptions have been noted below under Provider comments. Feeding preference: Post hemorrhage risk score: Medium Risk for Hemorrhage. Provider comments on imported nursing data: [] ___ General VS: Vital Signs: Date Time Temp Pulse Resp B/P B/P Pulse O2 O2 Flow FiO2 Mean Ox Delivery Rate 06/04 0010 36.9 77 17 111/74 99 06/03 2006 36.8 79 17 111/76 97 PATIENT WEIGHT: Weight (lb): 205 Weight (oz): 7.53 Weight (kg): 93.200 Physical Exam Abdomen: soft, no abnormal tenderness, no guarding Incision site: well approximated edges, no drainage, no inflammation Uterus: involution appropriate, non-tender Fundus: firm, below the umbilicus Lochia: normal Lower extremities: Edema: none Sirisha's sign: negative Calf tenderness: negative Diagnosis, Assessment Plan Diagnosis, Assessment Plan Assessment: nml progress Plan: routine care, discharge tomorrow at 1918 RPT #:[id number] END OF REPORT [facility] 2021-06-03 20:43:00 [facility] ([facility]) OB Postpart Progr Note REPORT#:[id number] REPORT STATUS: Signed DATE:06/03/21 TIME: 2042 PATIENT: EMILY GAFFNEY UNIT #: [id number] ROOM/BED: [place] [address] : 81 AGE: 40 SEX: F ATTEND: Kobi Sinclair MD ADM AUTHOR: Kobi Sinclair MD * ALL edits or amendments must be made on the electronic/computer document * Subjective Subjective Admission EGA: Weeks: 35 Days: 4 Status/Day: post operative (d2) Patient reports: Patient reports: Yes no complaints, Yes normal lochia, Yes pain management effective, Yes tolerating po well, Yes voiding well, Yes voiding without pain, Yes tolerating ambulation, Yes flatus Objective Nursing Documentation Review Nursing Data: The data set between the solid lines has been imported from nursing documentation. Any exceptions have been noted below under Provider comments. Feeding preference: Post hemorrhage risk score: Medium Risk for Hemorrhage. Provider comments on imported nursing data: [] ___ General VS: Vital Signs: Date Time Temp Pulse Resp B/P B/P Pulse O2 O2 Flow FiO2 Mean Ox Delivery Rate 06/03 0800 36.6 92 18 115/84 99 06/03 0010 37.0 82 17 100/62 97 PATIENT WEIGHT: Weight (lb): 205 Weight (oz): 7.53 Weight (kg): 93.200 Physical Exam Abdomen: soft, no abnormal tenderness, no guarding Incision site: well approximated edges, no drainage, no inflammation Uterus: involution appropriate, non-tender Fundus: firm, below the umbilicus Lochia: normal Lower extremities: Edema: none Sirisha's sign: negative Calf tenderness: negative Diagnosis, Assessment Plan Diagnosis, Assessment Plan Assessment: nml progress Plan: routine care at 2043 RPT #:[id number] END OF REPORT [facility] 2021-06-02 18:55:00 [facility] ([facility]) OB Postpart Progr Note REPORT#:[id number] REPORT STATUS: Signed DATE:06/02/21 TIME: 1854 PATIENT: EMILY GAFFNEY UNIT #: [id number] ROOM/BED: [place] [id number] : 81 AGE: 40 SEX: F ATTEND: Kobi Sinclair MD ADM AUTHOR: Kobi Sinclair MD * ALL edits or amendments must be made on the electronic/computer document * Subjective Subjective Admission EGA: Weeks: 35 Days: 4 Status/Day: post operative (d1) Patient reports: Patient reports: Yes no complaints, Yes normal lochia, Yes pain management effective, Yes tolerating po well, Yes voiding well, Yes voiding without pain, Yes tolerating ambulation, Yes flatus Objective Nursing Documentation Review Nursing Data: The data set between the solid lines has been imported from nursing documentation. Any exceptions have been noted below under Provider comments. Feeding preference: Post hemorrhage risk score: Medium Risk for Hemorrhage. Provider comments on imported nursing data: [] ___ General VS: Vital Signs: Date Time Temp Pulse Resp B/P B/P Pulse O2 O2 Flow FiO2 Mean Ox Delivery Rate 06/02 1615 36.9 77 17 112/75 98 06/02 1300 70 95 06/02 1145 68 98 06/02 1020 67 97 06/02 0937 80 99 06/02 0825 77 96 06/02 0728 36.8 76 16 109/69 98 06/02 0313 36.7 71 16 96/63 98 06/02 0012 36.8 70 16 111/70 96 06/01 2143 36.7 67 16 104/63 98 PATIENT WEIGHT: Weight (lb): 205 Weight (oz): 7.53 Weight (kg): 93.200 Physical Exam Abdomen: soft, no abnormal tenderness, no guarding Incision site: well approximated edges, no drainage, no inflammation Uterus: involution appropriate, non-tender Fundus: firm, below the umbilicus Lochia: normal Lower extremities: Edema: none Sirisha's sign: negative Calf tenderness: negative Result Findings/Data: Laboratory Tests: 06/02 0430 Chemistry Sodium (134 - 147 mEq/L) 138 Potassium (3.4 - 5.0 mEq/L) 3.7 Chloride (100 - 108 mEq/L) 108 Carbon Dioxide (21 - 33 mEq/l) 20 L Anion Gap (0 - 20) 14 BUN (7 - 18 mg/dL) < 5 L Creatinine (0.6 - 1.3 mg/dL) 0.5 L Glomerular Filtr Rate (105 - 110) 137.4 H Glucose (70 - 110 mg/dL) 105 Calcium (8.0 - 10.5 mg/dL) 8.5 Total Bilirubin (0.0 - 1.0 mg/dL) 0.30 AST (15 - 37 IUnit/L) 21 ALT (30 - 65 IUnit/L) 14 L Total Alk Phosphatase (20 - 125 IUnit/L) 105 Total Protein (6.4 - 8.2 g/dL) 4.9 L Albumin (3.4 - 5.0 g/dL) 2.30 L Hematology WBC (4.5 - 11.0 x10 3/uL) 13.0 H RBC (3.54 - 5.02 x10 6/uL) 3.37 L Hgb (11.0 - 15.0 g/dL) 10.1 L Hct (33.0 - 45.0 %) 31.5 L MCV (81.0 - 99.0 fL) 93.5 MCH (27.0 - 33.0 pg) 30.0 MCHC (33.0 - 37.0 g/dL) 32.1 L RDW (11.5 - 14.5 %) 13.3 Plt Count (150 - 400 x10 3/uL) 164 MPV (7.0 - 9.0 fL) 13.1 H Neut % (Auto) (56.0 - 77.0 %) 77.8 H Lymph % (Auto) (14.0 - 32.0 %) 14.6 [place] % (Auto) (4.8 - 9.0 %) 6.2 Eos % (Auto) (0.3 - 3.7 %) 0.7 Baso % (Auto) (0.0 - 2.0 %) 0.2 Neut # (Auto) (2.0 - 7.6 x10 3/uL) 10.08 H Lymph # (Auto) (1.0 - 3.8 x10 3/uL) 1.89 [place] # (Auto) (0.1 - 0.8 x10 3/uL) 0.81 H Eos # (Auto) (0.0 - 0.2 x10 3/uL) 0.09 Baso # (Auto) (0.0 - 0.2 x10 3/uL) 0.03 Abs Immat Gran (auto) (0.00 - 0.03 x10 3/uL) 0.07 H Add Manual Diff NO Immature Gran % (0.0 - 2.0 %) 0.5 Nucleated RBC % (0 - 0 %) 0.0 Nucleated RBCs # (Man) (0.0 - 0.1 x10 3/uL) 0.00 Immature Plt Fraction (0.9 - 11.2 %) 11.6 H Diagnosis, Assessment Plan Diagnosis, Assessment Plan Assessment: nml progress Plan: routine care at 1856 RPT #:[id number] END OF REPORT [facility] 2021-06-02 12:15:00 [facility] ([facility]) Pain Management Progress Note REPORT#:[id number] REPORT STATUS: Signed DATE:06/02/21 TIME: 1215 PATIENT: EMILY GAFFNEY UNIT #: [id number] ROOM/BED: [place] [address] : 81 AGE: 40 SEX: F ATTEND: Kobi Sinclair MD ADM AUTHOR: John Riggs MD * ALL edits or amendments must be made on the electronic/computer document * Objective General VS/I O: POD # 1 Chief Complaint: abdominal pain, s/p section Duramorph spinal Patient seen and examined Moving legs Current pain scale 3/10 Pain relieved by rest and pain medications Current patient activity level sitting in wheelchair nursing baby in NICU No side effects noted. Assessment and plan: Ambulating in her room this morning. Encouraged to continue with pain medications as needed. Continue pain management per primary team. Discontinue anesthesia service. Vital Signs Date Temp Pulse Resp B/P B/P Mean Pulse Ox FiO2 06/01-06/02 36.4-36.8 60-87 16-19 94-115/51-70 66.0-79.0 96-99 Last Documented: Result Date Time Pulse Ox 98 06/03 727 B/P 109/69 06/03 727 Temp 36.8 06/03 727 Pulse 76 06/02 0728 Resp 16 06/03 727 B/P Mean 76.0 06/01 1542 24 hour I O ending at 0700: 06/02 0700 06/01 1900 Intake Total 295 2584 Output Total 950 1182 Balance -655 1402 Weight 2.800 Blood Loss 682 Quantification Method Intake, Other 295 2584 Output, Other 950 1182 Patient 93.2 kg Weight PATIENT WEIGHT: Weight (lb): 205 Weight (oz): 7.53 Weight (kg): 93.200 at 1217 [facility] #:[id number] END OF REPORT [facility] 2021-06-01 13:30:00 [id number] [facility] [place] [address] PATIENT NAME: EMILY GAFFNEY ADMIT DATE: 06/01/21 ACCOUNT NO: [id number] ROOM NO: G.420 AGE: 40 REPORT TYPE: OPERATIVE REPORT SEX: F ADMITTING PHYSICIAN:Kobi Sinclair MD ATTENDING PHYSICIAN:Kobi Sinclair MD OPERATION DATE: PROCEDURE: Primary low transverse section via Pfannenstiel incision. SURGEON: Kobi Sinclair MD [employer] DEVELOPER: JULIA Cisneros PREOPERATIVE DIAGNOSES: 1. Intrauterine at 35 and 6/7th weeks' gestational age. 2. Premature rupture of membranes. 3. History of extensive myomectomy. POSTOPERATIVE DIAGNOSES: 1. Intrauterine at 35 and 6/7th weeks' gestational age. 2. Premature rupture of membranes. 3. History of extensive myomectomy. ANESTHESIA: FINDINGS: 1. Viable male in vertex presentation with scores 8 and 9. 2. Normal fallopian tubes and ovaries. ESTIMATED BLOOD LOSS: 400 mL. COMPLICATIONS: None. PATHOLOGY: Placenta and cord segment for gases. ANESTHESIA: Spinal with Duramorph. PROCEDURE IN DETAIL: After discussing risks and benefits of the procedure with the patient and answering her questions, she was taken to the operating room, where anesthesia was administered and found to be adequate. The patient was prepped and draped in normal sterile fashion in a supine position with a leftward tilt. Pfannenstiel skin incision was made with a scalpel and carried down to underlying layer of fascia with the scalpel. The fascia was nicked in the midline and the fascial incision was extended bilaterally using the Luis scissors. The superior aspect of the fascial incision was grasped with 2 Mere clamps, elevated, and underlying layer of rectus muscles were dissected off sharply with the Luis scissors. The same was repeated on the inferior aspect of the fascial incision where it was grasped with 2 Mere clamps, elevated, and PATIENT NAME: EMILY GAFFNEY underlying layer of rectus muscles were dissected off sharply with the Luis scissors. The muscles were in the midline. The peritoneum was identified and entered bluntly. The peritoneal incision was then extended superiorly and inferiorly with good visualization of bladder. The bladder blade was inserted and the vesicouterine fascia was dissected to create the bladder flap. The bladder blade was repositioned and the lower uterine segment was incised with a scalpel in a low transverse fashion. Incision was extended bilaterally in a blunt fashion. The 's head was delivered atraumatically and the mouth and nose suctioned. The 's torso was then delivered and the cord was clamped and cut. The infant was handed off to the waiting pediatric nurse. The placenta was delivered manually. The uterus was then exteriorized and cleared of all clots and debris. Uterine incision was then reapproximated with 0 Vicryl in a running-locked fashion with excellent hemostasis. The uterus was returned to the abdomen and the gutters were cleared of all clots and debris. The bladder blade was reinserted and the hysterotomy was re-examined and found to be hemostatic and was covered with a piece of Interceed adhesion barrier. The bladder blade was removed and the fascia was reapproximated with 0 Vicryl in a running fashion with excellent closure. The skin was closed with klaus. The procedure was terminated. All laps, needles, and instrument counts were correct x2 at the end of procedure. The patient was taken to recovery room in stable condition. Dictated By: Kobi Sinclair MD WT: OP:YUNG/ROBBIE/MARIELLA Conf#: [id number]/DID#: [id number] Authenticated by Kobi Sinclair MD On 06/05/2021 12:21:13 AM at 1221 PATIENT NAME: EMILY GAFFNEY [facility] 2021-06-01 13:28:00 [facility] ([facility]) Brief Op Note REPORT#:[id number] REPORT STATUS: Signed DATE:06/01/21 TIME: 1328 PATIENT: EMILY GAFFNEY UNIT #: [id number] ROOM/BED: [place] [address] : 81 AGE: 40 SEX: F ATTEND: Kobi Sinclair MD ADM AUTHOR: Kobi Sinclair MD * ALL edits or amendments must be made on the electronic/computer document * Op/Inv Proc Note - Brief Pre-procedure diagnosis: IUP at 35w6d Hx of extensive myomectomy PROM Post-procedure diagnosis: same as pre procedure dx Procedures performed: [facility] Primary Surgeon: Dottie [employer] Operator(s): JULIA Cisneros Findings: VMI in vtx presentation Apgars 8/9 Complications: none Estimated blood loss in ml's: 400 Specimens removed/altered: placenta and cord segment at 1329 RPT #:[id number] END OF REPORT [facility] 2021-06-01 13:27:00 [facility] ([facility]) DT History Physical REPORT#:[id number] REPORT STATUS: Signed DATE:06/01/21 TIME: 132 PATIENT: EMILY GAFFNEY UNIT #: [id number] ROOM/BED: [place] [address] : 81 AGE: 40 SEX: F ATTEND: Kobi Sinclair MD ADM AUTHOR: Kobi Sinclair MD * ALL edits or amendments must be made on the electronic/computer document * History Physical History Physical Patient seen and examined and records reviewed with the following updates. PROM at 35w6d Laboratory Tests 06/01/21 1115: [Embedded Image Not Available] Laboratory Tests 06/01 06/01 UNK UNK Blood Gas Cord Blood pH (7.18 - 7.38) 7.28 Cord Blood PCO2 (32 - 66 mmHg) 55 Cord Blood PO2 (6 - 30 mmHg) 18 Cord Blood HCO3 (17 - 27 mmol/L) 26 Cord Base Excess (-8.0 - 0.0 mmol/L) -0.9 Cord O2 Saturation (72 - 77 %) 21 L Cord VBG pH (7.25 - 7.45) 7.32 Cord VBG pCO2 (27 - 49 mmHg) 48 Cord VBG pO2 (17 - 41 mmHg) 24 Cord VBG HCO3 (12 - 28 MMOL/L) 24.7 Cord VBG Base Excess (-8.0 - 0.00 mmol/L) -1.4 Cord VBG O2 Sat (%) 37 Laboratory Tests 06/01 1115 Hematology WBC (4.5 - 11.0 x10 3/uL) 8.6 RBC (3.54 - 5.02 x10 6/uL) 3.92 Hgb (11.0 - 15.0 g/dL) 12.0 Hct (33.0 - 45.0 %) 35.5 MCV (81.0 - 99.0 fL) 90.6 MCH (27.0 - 33.0 pg) 30.6 MCHC (33.0 - 37.0 g/dL) 33.8 RDW (11.5 - 14.5 %) 13.2 Plt Count (150 - 400 x10 3/uL) 158 MPV (7.0 - 9.0 fL) 12.1 H Neut % (Auto) (56.0 - 77.0 %) 70.7 Lymph % (Auto) (14.0 - 32.0 %) 18.7 [place] % (Auto) (4.8 - 9.0 %) 7.6 Eos % (Auto) (0.3 - 3.7 %) 2.0 Baso % (Auto) (0.0 - 2.0 %) 0.2 Neut # (Auto) (2.0 - 7.6 x10 3/uL) 6.08 Lymph # (Auto) (1.0 - 3.8 x10 3/uL) 1.61 [place] # (Auto) (0.1 - 0.8 x10 3/uL) 0.65 Eos # (Auto) (0.0 - 0.2 x10 3/uL) 0.17 Baso # (Auto) (0.0 - 0.2 x10 3/uL) 0.02 Abs Immat Gran (auto) (0.00 - 0.03 x10 3/uL) 0.07 H Add Manual Diff NO Immature Gran % (0.0 - 2.0 %) 0.8 Nucleated RBC % (0 - 0 %) 0.0 Nucleated RBCs # (Man) (0.0 - 0.1 x10 3/uL) 0.00 Laboratory Tests 06/01 1035 Other Body Source Membrane Rupture (NEGATIVE) POSITIVE H Laboratory Tests 06/01 1115 Serology Hep Bs Antigen (NonReactive INDEX) NON REACTIVE HIV 1 2 Antibody Screen (Nonreactive) Nonreactive Laboratory Tests Test Result Date Time Blood Gas Cord Blood pH (7.18 - 7.38) 7.28 04/ UNK Cord Blood PCO2 (32 - 66 mmHg) 55 04/ UNK Cord Blood PO2 (6 - 30 mmHg) 18 04/ UNK Cord Blood HCO3 (17 - 27 mmol/L) 26 04/10 UNK Cord Base Excess (-8.0 - 0.0 mmol/L) -0.9 / UNK Cord O2 Saturation (72 - 77 %) 21 L 04/ UNK Cord VBG pH (7.25 - 7.45) 7.32 04/10 UNK Cord VBG pCO2 (27 - 49 mmHg) 48 04/10 UNK Cord VBG pO2 (17 - 41 mmHg) 24 04/10 UNK Cord VBG HCO3 (12 - 28 MMOL/L) 24.7 04/10 UNK Cord VBG Base Excess (-8.0 - 0.00 mmol/L) -1.4 /10 UNK Cord VBG O2 Sat (%) 37 / UNK Hematology WBC (4.5 - 11.0 x10 3/uL) 8.6 / 1115 RBC (3.54 - 5.02 x10 6/uL) 3.92 / 1115 Hgb (11.0 - 15.0 g/dL) 12.0 04/10 1115 Hct (33.0 - 45.0 %) 35.5 04/ 1115 MCV (81.0 - 99.0 fL) 90.6 04/ 1115 MCH (27.0 - 33.0 pg) 30.6 / 1115 MCHC (33.0 - 37.0 g/dL) 33.8 06/01 111 RDW (11.5 - 14.5 %) 13.2 06/01 1115 Plt Count (150 - 400 x10 3/uL) 158 06/01 1115 MPV (7.0 - 9.0 fL) 12.1 H 06/01 1115 Neut % (Auto) (56.0 - 77.0 %) 70.7 06/01 1115 Lymph % (Auto) (14.0 - 32.0 %) 18.7 06/01 1115 [place] % (Auto) (4.8 - 9.0 %) 7.6 06/01 1115 Eos % (Auto) (0.3 - 3.7 %) 2.0 06/01 1115 Baso % (Auto) (0.0 - 2.0 %) 0.2 06/01 1115 Neut # (Auto) (2.0 - 7.6 x10 3/uL) 6.08 06/01 1115 Lymph # (Auto) (1.0 - 3.8 x10 3/uL) 1.61 06/01 1115 [place] # (Auto) (0.1 - 0.8 x10 3/uL) 0.65 / 1115 Eos # (Auto) (0.0 - 0.2 x10 3/uL) 0.17 06/01 1115 Baso # (Auto) (0.0 - 0.2 x10 3/uL) 0.02 06/01 111 Abs Immat Gran (auto) (0.00 - 0.03 x10 3/uL) 0.07 H 06/01 1114 Add Manual Diff NO 06/01 1114 Immature Gran % (0.0 - 2.0 %) 0.8 06/01 1114 Nucleated RBC % (0 - 0 %) 0.0 06/01 111 Nucleated RBCs # (Man) (0.0 - 0.1 x10 3/uL) 0.00 06/01 1114 Other Body Source Membrane Rupture (NEGATIVE) POSITIVE H 06/01 103 Serology Hep Bs Antigen (NonReactive INDEX) NON REACTIVE 06/01 1114 HIV 1 2 Antibody Screen (Nonreactive) Nonreactive 06/01 1114 Home Medications: PNV WITH FE FUMARATE/FA () 1 TAB PO DAILY Home Medications: Medication Dose/Rte/Freq Days Qty Entered Last Max Daily Dose Reviewed PNV WITH FE 1 TAB PO DAILY 06/01/21 FUMARATE/FA 1036 () Strength: 1 EACH TAB Current Hospital Medications: Anti-Infective Agents Sig/Jaida Start time Last Medication Dose Route Stop Time Status Admin Cefazolin Sodium 2 GM STAT STA 06/01 1117 DC (KEFZOL OR ANCEF) IV 06/01 1118 Autonomic Drugs Sig/Jaida Start time Last Medication Dose Route Stop Time Status Admin Phenylephrine HCl 0 .STK-MED ONE 06/01 1245 DC (USAMA-SYNEPHRINE I-SILVESTRE 1000MCG/NS 10ML INJ) Central Nervous System Agents Sig/Jaida Start time Last Medication Dose Route Stop Time Status Admin Ketorolac 0 .STK-MED ONE 06/01 1317 DC Tromethamine .ROUTE (TORADOL 30 MG) Acetaminophen 1,000 MG ONCE STA 06/01 1117 DC 06/01 (TYLENOL EXTRA PO 06/01 1118 1145 STRENGTH) Fentanyl Citrate 0 .STK-MED ONE 06/01 1107 DC (SUBLIMAZE) .ROUTE Morphine Sulfate 0 .STK-MED ONE 06/01 1107 DC (DURAMORPH) .ROUTE Electrolytic, Caloric, And Nic Sig/Jaida Start time Last Medication Dose Route Stop Time Status Admin Citric Acid/Sodium 30 ML PREOP ONCALL 06/01 1130 CKD 06/01 Citrate PO 07/01 1129 1144 (BICITRA ADULT DOSE) Lactated Ringer's 1,000 ML .Q8H 06/01 1130 AC 06/01 (LACTATED RINGERS) IV 06/02 0329 1145 Sodium Chloride 20 ML ASDIR 06/01 1130 AC (SODIUM CHLORIDE) IV 07/01 1129 Gastrointestinal Drugs Sig/Jaida Start time Last Medication Dose Route Stop Time Status Admin Famotidine 20 MG PREOP ONCALL 06/01 1130 CKD 06/01 (PEPCID) IV 07/01 1129 1143 Metoclopramide HCl 10 MG PREOP ONCALL 06/01 1130 CKD 06/01 (REGLAN) IV 07/01 1129 1143 Misoprostol 800 MCG ONCE PRN 06/01 1130 AC (miSOPROStoL) RECTAL 07/01 1129 Scopolamine 1 PATCH ONCE STA 06/01 1117 DC 06/01 (TRANSDERM-SCOP) TRANSDERM 06/01 1118 1144 Oxytocics Sig/Jaida Start time Last Medication Dose Route Stop Time Status Admin Carboprost 250 MCG ONCE PRN 06/01 1130 AC Tromethamine IM 07/01 1128 (HEMABATE) Methylergonovine 0.2 MG ONCE PRN 06/01 113 AC Maleate IM 07/01 1128 (METHERGINE) Oxytocin 333.33 ML BOLUS PRN 06/01 1129 AC (OXYTOCIN 30 UNITS/ IV 07/01 1128 NS 500ML) Vital Signs: Date Time Temp Pulse Resp B/P B/P Pulse O2 O2 Flow FiO2 Mean Ox Delivery Rate 06/02 1107 36.8 83 16 98 06/01 1103 78 98 06/01 1058 86 98 06/01 1053 93 98 06/01 1048 83 98 06/01 1043 85 96 06/01 1042 91.0 06/01 1042 36.8 89 16 117/75 Laboratory Tests 06/01 06/01 06/01 UNK UNK 1035 Blood Gas Cord Blood pH (7.18 - 7.38) 7.28 Cord Blood PCO2 (32 - 66 mmHg) 55 Cord Blood PO2 (6 - 30 mmHg) 18 Cord Blood HCO3 (17 - 27 mmol/L) 26 Cord Base Excess (-8.0 - 0.0 mmol/L) -0.9 Cord O2 Saturation (72 - 77 %) 21 Cord VBG pH (7.25 - 7.45) 7.32 Cord VBG pCO2 (27 - 49 mmHg) 48 Cord VBG pO2 (17 - 41 mmHg) 24 Cord VBG HCO3 (12 - 28 MMOL/L) 24.7 Cord VBG Base Excess (-8.0 - 0.00 mmol/L) -1.4 Cord VBG O2 Sat (%) 37 Other Body Source Membrane Rupture (NEGATIVE) POSITIVE 06/01 1114 Hematology WBC (4.5 - 11.0 x10 3/uL) 8.6 RBC (3.54 - 5.02 x10 6/uL) 3.92 Hgb (11.0 - 15.0 g/dL) 12.0 Hct (33.0 - 45.0 %) 35.5 MCV (81.0 - 99.0 fL) 90.6 MCH (27.0 - 33.0 pg) 30.6 MCHC (33.0 - 37.0 g/dL) 33.8 RDW (11.5 - 14.5 %) 13.2 Plt Count (150 - 400 x10 3/uL) 158 MPV (7.0 - 9.0 fL) 12.1 Neut % (Auto) (56.0 - 77.0 %) 70.7 Lymph % (Auto) (14.0 - 32.0 %) 18.7 [place] % (Auto) (4.8 - 9.0 %) 7.6 Eos % (Auto) (0.3 - 3.7 %) 2.0 Baso % (Auto) (0.0 - 2.0 %) 0.2 Neut # (Auto) (2.0 - 7.6 x10 3/uL) 6.08 Lymph # (Auto) (1.0 - 3.8 x10 3/uL) 1.61 [place] # (Auto) (0.1 - 0.8 x10 3/uL) 0.65 Eos # (Auto) (0.0 - 0.2 x10 3/uL) 0.17 Baso # (Auto) (0.0 - 0.2 x10 3/uL) 0.02 Abs Immat Gran (auto) (0.00 - 0.03 x10 3/uL) 0.07 Add Manual Diff NO Immature Gran % (0.0 - 2.0 %) 0.8 Nucleated RBC % (0 - 0 %) 0.0 Nucleated RBCs # (Man) (0.0 - 0.1 x10 3/uL) 0.00 Serology RPR (NONREACTIVE) Pending Hep Bs Antigen (NonReactive INDEX) NON REACTIVE HIV 1 2 Antibody Screen (Nonreactive) Nonreactive Current Medications Sig/Jaiad Start time Last Medication Dose Route Stop Time Status Admin Ketorolac 0 .STK-MED ONE 06/01 1317 DC Tromethamine .ROUTE Phenylephrine HCl 0 .STK-MED ONE 06/01 1245 DC I-SILVESTRE Carboprost 250 MCG ONCE PRN 06/01 1130 AC Tromethamine IM 07/01 1129 Citric Acid/Sodium 30 ML PREOP ONCALL 06/01 1130 CKD 06/01 Citrate PO 07/01 1129 1144 Famotidine 20 MG PREOP ONCALL 06/01 1130 CKD 06/01 IV 07/01 1129 1143 Lactated Ringer's 1,000 ML .Q8H 06/01 1130 AC 06/01 IV 06/02 0329 1145 Methylergonovine 0.2 MG ONCE PRN 06/01 1130 AC Maleate IM 07/01 1129 Metoclopramide HCl 10 MG PREOP ONCALL 06/01 1130 CKD 06/01 IV 07/01 1129 1143 Misoprostol 800 MCG ONCE PRN 06/01 1130 AC RECTAL 07/01 1129 Oxytocin 333.33 ML BOLUS PRN 06/01 1130 AC IV 07/01 1129 Sodium Chloride 20 ML ASDIR 06/01 1130 AC IV 07/01 1129 Acetaminophen 1,000 MG ONCE STA 06/01 1117 DC 06/01 PO 06/01 1118 1145 Cefazolin Sodium 2 GM STAT STA 06/01 1117 DC IV 06/01 1118 Scopolamine 1 PATCH ONCE STA 06/01 1117 DC 06/01 TRANSDERM 06/01 1118 1144 Fentanyl Citrate 0 .STK-MED ONE 06/01 1107 DC .ROUTE Morphine Sulfate 0 .STK-MED ONE 06/01 1107 DC .ROUTE at 1328 RPT #:[id number] END OF REPORT [facility]
[2024-06-01] MEDS ORDERED: KETOROLAC 30 MG/ML INJ ONE (01:58)
[2024-06-01] MEDS ORDERED: ONDANSETRON 4 MG/2 ML VIAL ONE (02:01)
[2024-06-01] MEDS ORDERED: MORPHINE 4 MG/ML SYR ONE (02:01)
[2024-06-01] MEDS ORDERED: NA CHLORIDE 0.9% 1,000 ML ONE (02:02)
[2024-06-01] MEDS ORDERED: LORazepam 2 MG/ML VIAL ONE (02:14)
[2024-06-01] MEDS ORDERED: droPERidol 5 MG/2 ML VIAL ONE (02:15)
[2024-06-01 02:35] LABS: Absolute Basophils 0.1 K/uL (0-0.5); Absolute Eosinophils 0.1 K/uL (0-0.5); Absolute Lymphocytes (CBC) 2.2 K/uL (0.7-4.9); Absolute Monocytes 0.5 K/uL (0.1-1.3); Absolute Neutrophil 2.3 K/uL (1.8-8.0); Eosinophils % 1.9 % (0-4.4); Hematocrit 34.6 % (36.0-45.0); Hemoglobin 11.5 g/dL (12.0-15.0); Lymphocytes % 42.3 % (15.3-44.8); MCH 26.8 pg (27.0-35.0); MCHC 33.2 g/dL (32.0-36.0); MCV 80.9 fL (80-100); MPV 9.9 fL (7.6-11.3); Monocytes % 9.6 % (3.3-12.3); Neutrophils % 45.2 % (41.7-73.7); Platelets 217 thou/uL (152-406); RBC Red Blood Cell Count 4.28 M/uL (3.86-4.86); Red Cell Distribution Width 15.8 % (12.1-15.2)
[2024-06-01 02:42] LABS: Albumin 3.8 g/dL (3.4-5.0); Albumin/Globulin Ratio 1.3 (1.1-1.8); Anion Gap 7.1 mEq/L (5.0-15.0); Bilirubin Total 0.4 mg/dL (0.2-1.0); Potassium 4.1 mEq/L (3.5-5.1); Protein, Total 6.8 g/dL (6.4-8.2)
[2024-06-01] MEDS ORDERED: FAMOTIDINE 20 MG/2 ML VIAL IV ONE (02:46)
--- NOTE | 2024-06-01 05:57 | EDPHYS ---
Physician Documentation [facility] Name: Adria Medel Age: 43 yrs Sex: Female : 1980 Arrival Date: 06/01/2024 Time: 01:49 Bed 12 Private MD: ED Physician Chris Oneal HPI: 06/01 02:03 This 43 yrs old Female presents to ER via Unassigned with complaints of sp4 Abdominal Pain, Back Pain. 05:19 43-year-old female with history of Al-en-Y gastric bypass also history of partial sp4 hysterectomy presents with moderate to severe upper abdominal pain mostly right upper quadrant. Associated with nausea and referred pain to the back.. 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 Flu vaccine is up to date. - Infectious Disease History:: Denies. - Social history:: Smoking status: Patient denies any tobacco usage or history of. - Family history:: not pertinent. ROS: 05:19 Constitutional: Negative for fever, chills, and weight loss, positive for acute upper sp4 abdominal pain and back pain 05:19 All other systems are negative, Exam: 05:19 Constitutional: This is a well developed, well nourished patient who is awake, alert, sp4 and in no acute distress. Head/Face: Normocephalic, atraumatic. Eyes: Pupils equal round and reactive to light, extra-ocular motions intact. Lids and lashes normal. Conjunctiva and sclera are not injected. Cornea within normal limits. Periorbital areas with no swelling, redness, or edema. ENT: Nares patent. No nasal discharge, no septal abnormalities noted. Tympanic membranes are normal and external auditory canals are clear. Oropharynx with no redness, swelling, or masses, exudates, or evidence of obstruction, uvula midline. Mucous membranes moist. Neck: Trachea midline, no thyromegaly or masses palpated, and no cervical lymphadenopathy. Supple, full range of motion without nuchal rigidity, or vertebral point tenderness. Chest/axilla: Normal chest wall appearance and motion. Nontender with no deformity. No lesions are appreciated. Cardiovascular: Regular rate and rhythm with a normal S1 and S2. No gallops, murmurs, or rubs. Normal PMI, no JVD. No pulse deficits. Respiratory: Lungs have equal breath sounds bilaterally, clear to auscultation and percussion. No rales, rhonchi or wheezes noted. No increased work of breathing, no retractions or nasal flaring. Abdomen/GI: Soft, with normal bowel sounds. No distension or tympany. Positive moderate to severe upper quadrant abdominal tenderness , positive diffuse upper abdominal tenderness Back: No spinal tenderness. No costovertebral tenderness. Skin: Warm, dry with normal turgor. Normal color with no rashes, no lesions, and no evidence of cellulitis. MS/ Extremity: Pulses equal, no cyanosis. Neurovascular intact. Full, normal range of motion. Neuro: Awake and alert, GCS 15, oriented to person, place, time, and situation. Cranial nerves II-XII grossly intact. Motor strength 5/5 in all extremities. Sensory grossly intact. Psych: Awake, alert, with orientation to person, place and time. Behavior, mood, and affect are within normal limits Vital Signs: 02:05 BP 101 / 65; Pulse 98; Resp 20; Temp 98.5; Pulse Ox 100% ; Weight 60.33 kg; Height 5 vc1 ft. 5 in. ; Pain 10/10; 04:39 BP 92 / 65; Pulse 67; Resp 14; Pulse Ox 98% ; vc1 05:56 BP 91 / 65; Pulse 64; Resp 14; Pulse Ox 100% ; vc1 02:05 Body Mass Index 22.13 (60.33 kg, 165.1 cm) vc1 02:05 Pain Scale: Adult vc1 Mikey Coma Score: 05:19 Eye Response: spontaneous(4). Motor Response: obeys commands(6). Verbal Response: sp4 oriented(5). Total: 15. MDM: 02:00 Medical Screening Exam initiated sp4 05:22 Differential diagnosis: Fatigue Fracture Osteoporosis ruptured disc, Scoliosis. Data sp4 reviewed: vital signs, nurses notes, lab test result(s), radiologic studies, CT scan. Consideration of Admission/Observation Escalation of care including admission/observation considered. 05:45 ED course: FINDINGS: LOWER CHEST: Lung bases are clear without pleural or pericardial sp4 effusion. Bilateral breast implants in place. LIVER: Unremarkable. BILIARY: Unremarkable. PANCREAS: Unremarkable. SPLEEN: Unremarkable. ADRENALS: Unremarkable. KIDNEYS/URETERS: Unremarkable. STOMACH: Postsurgical changes from previous gastric bypass. BOWEL: Bowel anastomosis at ascending colon. Mild diffuse distention of small bowel and colon, likely ileus. There is sacralization of distal small bowel loops, likely reflecting incompetent ileocecal valves. Slightly swirling appearance of mesenteric vessels in right abdomen on series 202 image 38 without definite volvulus. Moderate colonic stool burden. APPENDIX: Appendix is not visualized. No focal inflammation in right lower quadrant to suggest acute appendicitis. MESENTERY/PERITONEUM: No free fluid or free air. No focal collection. Several surgical clips in left peritoneal cavity. RETROPERITONEUM: No adenopathy. URINARYBLADDER: Mild circumferential wall thickening of urinary bladder may be due to underdistention. Correlation with urinalysis to exclude cystitis is recommended. REPRODUCTIVE: Status post hysterectomy. VASCULAR: Unremarkable. ABDOMINAL/PELVIC WALL: Unremarkable. BONES: No acute or significant abnormality. IMPRESSION: 1. Mild diffuse distention of small bowel and colon, likely ileus. No focal obstruction. 2. Slightly swirling appearance of mesenteric vessels in right abdomen without definite volvulus. 3. Mild circumferential wall thickening of urinary bladder may be due to underdistention. Correlation with urinalysis to exclude cystitis is recommended. Electronically signed by: Lynne Whatley MD 06/01/2024 05:38 AM CDT. 05:54 ED course: On repeat evaluation pain has completely resolved. Patient states she is sp4 feeling better. Will perform p.o. challenge. Otherwise stable for discharge home with p.o. PRN Reglan and Bentyl. 06/01 02:05 Order name: CBC with Diff; Complete Time: 05:03 sp4 06/01 02:05 Order name: CMP; Complete Time: 05:03 sp4 06/01 02:05 Order name: Lipase; Complete Time: 05:03 sp4 06/01 02:05 Order name: CT Abd/Pelvis - IV Contrast Only sp4 06/01 02:05 Order name: IV Saline Lock; Complete Time: 02:12 sp4 06/01 02:05 Order name: Labs collected and sent; Complete Time: 02:13 sp4 06/01 05:54 Order name: PO challenge; Complete Time: 05:57 sp4 Administered Medications: 02:10 Drug: NS 0.9% IV 1000 ml IV at 1 bolus Per protocol; to be given as a bolus over 60 vc1 minutes Route: IV; Rate: 1 bolus; Site: right antecubital; 02:10 Drug: Ketorolac IVP 30 mg IVP once Route: IVP; Site: right antecubital; vc1 02:39 Follow up: Response: No adverse reaction; Marked relief of symptoms vc1 02:23 Drug: morphine IVP or IV 4 mg IVP once over 4 mins Route: IVP; Infused Over: 4 mins; vc1 Site: right antecubital; 02:50 Follow up: Response: No adverse reaction; Marked relief of symptoms vc1 02:23 Drug: Ativan IVP 1 mg IVP once Route: IVP; Site: right antecubital; vc1 02:50 Follow up: Response: No adverse reaction; Marked relief of symptoms; RASS: Light vc1 sedation (-2) 02:23 Drug: Droperidol IVP 2.5 mg IVP once Route: IVP; Site: right antecubital; vc1 02:50 Follow up: Response: No adverse reaction; Marked relief of symptoms; RASS: Light vc1 sedation (-2) 02:25 Drug: Ondansetron IVP 8 mg IVP once; over 2 minutes Route: IVP; Site: right antecubital;vc1 02:51 Follow up: Response: No adverse reaction; Marked relief of symptoms vc1 02:50 Drug: Famotidine IVP 20 mg IVP once; dilute with 10 mL 0.9% NaCl; give over 2 minutes vc1 Route: IVP; Site: right antecubital; 02:51 Follow up: Response: No adverse reaction; Marked relief of symptoms vc1 Disposition Summary: 06/01/24 05:56 Discharge Ordered Notes: Clear liquid only for 24 hours Location: Home sp4 Problem: new sp4 Symptoms: have improved sp4 Condition: Stable sp4 Diagnosis - Acute ileus, acute upper abdominal pain sp4 Followup: sp4 - With: Private Physician - When: 7 - 10 days - Reason: Recheck today's complaints Discharge Instructions: - Discharge Summary Sheet sp4 - Ileus sp4 - Clear Liquid Diet, Adult, Dyhy-ra-Fduy sp4 Forms: - Patient Portal Instructions sp4 Prescriptions: - dicyclomine 20 mg Oral tablet - take 1 tablet ORAL route 2 times per day PRN abdominal pain; 30 tablet; sp4 Refills: 0, Product Selection Permitted - phenobarbital 60 mg Oral tablet - take 0.5 tablet ORAL route every 8 hours PRN abdominal cramps; 30 tablet; sp4 Refills: 0, Product Selection Permitted - Reglan 10 mg Oral tablet - take 1 tablet ORAL route every 6 hours PRN nausea; 60 tablet; Refills: 0, sp4 Product Selection Permitted Signatures: Dispatcher [employer] EDFlor Coker, RN RN vc1 Chris Oneal MD MD sp4 Corrections: (The following items were deleted from the chart) 02:05 02:05 CBC+H.LAB.BRZ ordered. EDMS EDMS 02:05 02:05 COMPREHENSIVE METABOLIC PANEL+C.LAB.BRZ ordered. EDMS EDMS 02:05 02:05 LIPASE+C.LAB.BRZ ordered. EDMS EDMS 02:05 02:05 Urinalysis+U.LAB.BRZ ordered. EDMS EDMS 02:05 02:05 Abdomen Pelvis W Con+CT.RAD.BRZ ordered. EDMS EDMS 02:40 02:07 CBC+H.LAB.BRZ ordered. EDMS EDMS 02:40 02:07 COMPREHENSIVE METABOLIC PANEL+C.LAB.BRZ ordered. EDMS EDMS 02:40 02:07 LIPASE+C.LAB.BRZ ordered. EDMS EDMS
--- NOTE | 2024-06-01 05:57 | ER ---
Nurse's Notes [facility] Name: Adria Medel Age: 43 yrs Sex: Female : 1980 Arrival Date: 06/01/2024 Time: 01:49 Bed 12 Private MD: Diagnosis: Acute ileus, acute upper abdominal pain Presentation: 06/01 02:05 Chief complaint: Patient states: I woke up with severe abdominal pain and burning in my vc1 upper stomach. 02:05 Coronavirus screen: Client denies travel out of the [place] in the last 14 days. At this vc1 time, the client does not indicate any symptoms associated with coronavirus-19. Ebola Screen: Patient negative for fever greater than or equal to 101.5 degrees Fahrenheit, and additional compatible Ebola Virus Disease symptoms Patient denies exposure to infectious person. Patient denies travel to an Ebola-affected area in the 21 days before illness onset. No symptoms or risks identified at this time. Initial Sepsis Screen: Does the patient meet any 2 criteria? No. Patient's initial sepsis screen is negative. Does the patient have a suspected source of infection? No. Patient's initial sepsis screen is negative. Risk Assessment: Do you want to hurt yourself or someone else? Patient reports no desire to harm self or others. Onset of symptoms was June 01, 2024. Care prior to arrival: Medication(s) given: Motrin, mylanta. Activity prior to arrival: None. 02:05 Method Of Arrival: Ambulatory vc1 02:05 Acuity: ALFREDO 3 vc1 Triage Assessment: 02:05 General: Appears distressed, uncomfortable, slender, well groomed, well developed, well vc1 nourished, Behavior is cooperative, crying, restless. Pain: Complains of pain in epigastric area, right lower quadrant and left lower quadrant Pain does not radiate. Pain currently is 10 out of 10 on a pain scale. Quality of pain is described as burning, sharp. EENT: No deficits noted. No signs and/or symptoms were reported regarding the EENT system. Neuro: Level of Consciousness is awake, alert, obeys commands, Oriented to person, place, time, situation, Appropriate for age. Cardiovascular: Heart tones S1 S2 present Capillary refill < 3 seconds Patient's skin is warm and dry. Respiratory: Airway is patent Respiratory effort is even, unlabored, Respiratory pattern is regular, symmetrical, Breath sounds are clear bilaterally. GI: Abdomen is flat, non-distended, Reports lower abdominal pain. : No deficits noted. No signs and/or symptoms were reported regarding the genitourinary system. Derm: Skin is intact, is healthy with good turgor, Skin is dry, Skin is normal, Skin temperature is cool. Musculoskeletal: Circulation, motion, and sensation intact. Range of motion: intact in all extremities. 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 Flu vaccine is up to date. - Infectious Disease History:: Denies. - Social history:: Smoking status: Patient denies any tobacco usage or history of. - Family history:: not pertinent. Screenin:05 [facility] ED Fall Risk Assessment (Adult) History of falling in the last 3 months, vc1 including since admission No falls in past 3 months (0 pts) Confusion or Disorientation No (0 pts) Intoxicated or Sedated No (0 pts) Impaired Gait No (0 pts) Mobility Assist Device Used No (0 pt) Altered Elimination No (0 pt) Score/Fall Risk Level 0 - 2 = Low Risk Oriented to surroundings, Maintained a safe environment, Educated pt \T\ family on fall prevention, incl call for assistance when getting out of bed, Hourly rounding (assess needs \T\ fall precautionary measures) done. Abuse screen: Denies threats or abuse. Nutritional screening: No deficits noted. Tuberculosis screening: No symptoms or risk factors identified. Assessment: 02:38 General: see triage assessment. GI: Bowel sounds present X 4 quads. Abd is soft Abdomen vc1 is tender to palpation in epigastric area, right upper quadrant, left upper quadrant and left lower quadrant Reports lower abdominal pain, nausea, Pain is 10 out of 10 on a pain scale. 04:39 Reassessment: Patient and/or family updated on plan of care and expected duration. Pain vc1 level reassessed. Patient is alert, oriented x 3, equal unlabored respirations, skin warm/dry/pink. Patient states feeling better. Patient states symptoms have improved. 05:57 Reassessment: Patient appears in no apparent distress at this time. No changes from vc1 previously documented assessment. Patient and/or family updated on plan of care and expected duration. Pain level reassessed. Patient is alert, oriented x 3, equal unlabored respirations, skin warm/dry/pink. Vital Signs: 02:05 BP 101 / 65; Pulse 98; Resp 20; Temp 98.5; Pulse Ox 100% ; Weight 60.33 kg; Height 5 vc1 ft. 5 in. ; Pain 10/10; 04:39 BP 92 / 65; Pulse 67; Resp 14; Pulse Ox 98% ; vc1 05:56 BP 91 / 65; Pulse 64; Resp 14; Pulse Ox 100% ; vc1 02:05 Body Mass Index 22.13 (60.33 kg, 165.1 cm) vc1 02:05 Pain Scale: Adult vc1 Mikey Coma Score: 05:19 Eye Response: spontaneous(4). Motor Response: obeys commands(6). Verbal Response: sp4 oriented(5). Total: 15. ED Course: 01:51 Patient arrived in ED. [id number] 02:00 Chris Oneal MD is Attending Physician. sp4 02:05 Arm band placed on right wrist. vc1 02:05 Patient has correct armband on for positive identification. Placed in gown. Bed in low vc1 position. Call light in reach. Side rails up X2. Adult w/ patient. Provided Education on: plan of care. Pulse ox on. NIBP on. 02:09 Inserted saline lock: 20 gauge in right antecubital area, using aseptic technique. dd2 Blood collected. Flushed with 10 mL NS. Patient maintains SpO2 saturation greater than 95% on room air. 02:10 Flor Yancey, RN is Primary Nurse. vc1 02:10 No provider procedures requiring assistance completed. Initial lab(s) drawn, by me, dd2 sent to lab. 02:13 CBC with Diff Sent. vk 02:13 CMP Sent. vk 02:13 Lipase Sent. vk 02:32 Triage completed. vc1 03:11 CT Abd/Pelvis - IV Contrast Only In Process Unspecified. EDMS 06:18 IV discontinued, intact, bleeding controlled, No redness/swelling at site. Pressure vc1 dressing applied. Administered Medications: 02:10 Drug: NS 0.9% IV 1000 ml IV at 1 bolus Per protocol; to be given as a bolus over 60 vc1 minutes Route: IV; Rate: 1 bolus; Site: right antecubital; 02:10 Drug: Ketorolac IVP 30 mg IVP once Route: IVP; Site: right antecubital; vc1 02:39 Follow up: Response: No adverse reaction; Marked relief of symptoms vc1 02:23 Drug: morphine IVP or IV 4 mg IVP once over 4 mins Route: IVP; Infused Over: 4 mins; vc1 Site: right antecubital; 02:50 Follow up: Response: No adverse reaction; Marked relief of symptoms vc1 02:23 Drug: Ativan IVP 1 mg IVP once Route: IVP; Site: right antecubital; vc1 02:50 Follow up: Response: No adverse reaction; Marked relief of symptoms; RASS: Light vc1 sedation (-2) 02:23 Drug: Droperidol IVP 2.5 mg IVP once Route: IVP; Site: right antecubital; vc1 02:50 Follow up: Response: No adverse reaction; Marked relief of symptoms; RASS: Light vc1 sedation (-2) 02:25 Drug: Ondansetron IVP 8 mg IVP once; over 2 minutes Route: IVP; Site: right antecubital;vc1 02:51 Follow up: Response: No adverse reaction; Marked relief of symptoms vc1 02:50 Drug: Famotidine IVP 20 mg IVP once; dilute with 10 mL 0.9% NaCl; give over 2 minutes vc1 Route: IVP; Site: right antecubital; 02:51 Follow up: Response: No adverse reaction; Marked relief of symptoms vc1 Medication: 02:38 VIS not applicable for this client. vc1 Outcome: 05:56 Discharge ordered by sp4 06:18 Discharged to home ambulatory, with family, vc1 06:18 Condition: good 06:18 Discharge instructions given to patient, Instructed on discharge instructions, follow up and referral plans. medication usage, Demonstrated understanding of instructions, follow-up care, medications, Prescriptions given X 3, 06:19 Patient left the ED. vc1 Signatures: Dispatcher [employer] EDMS SalimaHallie dodge [email or web address] Flor Yancey RN RN vc1 Chris Oneal MD MD sp4 Giana Alvarado DIANA, RN RN dd2 Corrections: (The following items were deleted from the chart) 02:40 02:13 LIPASE+C.LAB.BRZ drawn and sent. vk EDMS 02:40 02:13 COMPREHENSIVE METABOLIC PANEL+C.LAB.BRZ drawn and sent. vk EDMS 02:40 02:13 CBC+H.LAB.BRZ drawn and sent. vk EDMS
--- NOTE | 2024-06-01 06:10 | RAD REPORT ---
CT ABDOMEN PELVIS WITH IV CONTRAST CLINICAL INDICATION: Abdominal pain COMPARISON: CT abdomen and pelvis 05/28/2022 TECHNIQUE: CT images of the abdomen and pelvis obtained following administration of intravenous contr ast. Multiplanar reformats were provided. Dose-optimization techniques such as automated exposure control, iterative reconstruction, and mA and/or kV adjustment for patient size was utilized for this examination. FINDINGS: LOWER CHEST: Lung bases are clear without pleural or pericardial effusion. Bilateral breast implants in place. LIVER: Unremarkable. BILIARY: Unremarkable. PANCREAS: Unremarkable. SPLEEN: Unremarkable. ADRENALS: Unremarkable. KIDNEYS/URETERS: Unremarkable. STOMACH: Postsurgical changes from previous gastric bypass. BOWEL: Bowel anastomosis at ascending colon. Mild diffuse distention of small bowel and colon, likely ileus. There is sacralization of distal small bowel loops, likely reflecting incompetent ileocecal valves. Slightly swirling appearance of mesenteric vessels in right abdomen on series 202 image 38 wi thout definite volvulus. Moderate colonic stool burden. APPENDIX: Appendix is not visualized. No focal inflammation in right lower quadrant to suggest acute appendicitis. MESENTERY/PERITONEUM: No free fluid or free air. No focal collection. Several surgical clips in left peritoneal cavity. RETROPERITONEUM: No adenopathy. URINARY BLADDER: Mild circumferential wall thickening of urinary bladder may be due to underdistentio n. Correlation with urinalysis to exclude cystitis is recommended. REPRODUCTIVE: Status post hysterectomy. VASCULAR: Unremarkable. ABDOMINAL/PELVIC WALL: Unremarkable. BONES: No acute or significant abnormality. IMPRESSION: 1. Mild diffuse distention of small bowel and colon, likely ileus. No focal obstruction. 2. Slightly swirling appearance of mesenteric vessels in right abdomen without definite volvulus. 3. Mild circumferential wall thickening of urinary bladder may be due to underdistention. Correlati on with urinalysis to exclude cystitis is recommended. Electronically signed by: Lynne Whatley MD 06/01/2024 05:38 AM CDT Due to temporary technical issues with the PACS/[employer] reporting system, reports are being jennifer d by the in-house radiologist without review as a courtesy to ensure prompt reporting the interpreting radiologist is fully responsible for the content of the report. Transcribed Date/Time: 06/01/2024 6:10 AM
[2024-06-01 06:28] VITALS: TEMP 98.5
[2024-06-01 06:39] VITALS: BP 91/65; O2SAT 100
== END 2024-06-01 06:19 | disposition home or self-care (01) ==
LOC: ER 01:49
DX: K56.7 Ileus, unspecified (principal); Z98.84 Bariatric surgery status; Z28.310 Unvaccinated for COVID-19
CPT/HCPCS: 85025; 36415; 83690; 80053; 74177; 96375; 96374; 99284; Q9967; J2405; J1790; J7030